=== PATIENT | female | born 1985 | race Caucasian/White ===

== ENCOUNTER → 2017-09-21 | Outpatient (CLI) | payer SELFPAY ==
[~2017-09-21] MED LIST: CYCL10TA9 PO; IBP600T1 PO; IOHEXOL 350 MG/ML 100 ML (OMNIPAQUE 350) VIAL IV ONE; NS 250 ML (IVPB) BAG IV ONE; ONDN4T PO; OXYC-12 PO; PREN1TAB39 PO
--- NOTE | 2017-09-21 16:24 | Diagnostic Imaging Report ---
PROCEDURE: CT abdomen and pelvis with and without contrast. TECHNIQUE: Precontrast acquisitions were acquired through the abdomen and pelvis. Multiple contiguous axial images were obtained through the abdomen and pelvis after the administration of intravenous contrast. INDICATION: 24 hours history back and abdominal pain. COMPARISON: I have no priors. FINDINGS: Appendiceal diameter maximal 5.9 mm within normal limits. There is no evidence for appendicitis. An IUD device is in good position. There is a right adnexal cyst posteriorly presumed ovarian with a long axis of 4.5 cm. The left adnexa and ovary appeared normal. There is no diverticulitis. Kidneys unobstructed. There are no opaque stones. Liver, spleen, adrenals, pancreas and gallbladder are unremarkable. IMPRESSION: Normal appendix, unobstructed. Nonacute urinary tracts. Right adnexal cyst presumed ovarian, 4.5 cm with an IUD in good position. Otherwise negative. Dictated by: Dictated on workstation # [id number]
== END ==
LOC: RAD 15:37
PROVIDERS: ATTEND Nurse Practitioner Family
DX: N83.8 Other noninflammatory disorders of ovary, fallopian tube and broad ligament (principal); M54.9 Dorsalgia, unspecified; Z97.5 Presence of (intrauterine) contraceptive device
CPT/HCPCS: 74178